=== PATIENT | male | born 1955 | race Caucasian/White ===

== ENCOUNTER 2018-09-20 20:31 | Inpatient (IN) | payer MEDICAID ==
[~2018-09-20] VITALS: Ht 172.7 cm; Wt 82.1 kg
[~2018-09-20 20:31] MED LIST: ACET-2119 PO; BISM-116 PO; LEVO500T2 PO; MAG355OR18 PO; METR500T4 PO; OMEP40CA37 PO
[2018-09-20 20:55] LABS: BASOPHILS % (AUTO) 0.3 % (0-1); EOSINOPHILS # (AUTO) 0.4 X10'3 (0-0.9); EOSINOPHILS % (AUTO) 2.5 % (0-6); HEMATOCRIT 45.6 % (42.0-52.0); HEMOGLOBIN 15.4 g/dl (14.0-17.9); LYMPHOCYTES # (AUTO) 1.6 X10'3 (1.1-4.8); LYMPHOCYTES % (AUTO) 10.5 % (21-51); MEAN CORPUSCULAR HGB CONC 33.9 % (33.0-36.5); MEAN CORPUSCULAR VOLUME 91.5 FL (78-98); MEAN PLATELET VOLUME 8.1 FL (7.4-10.4); MONOCYTES # (AUTO) 1.1 X10'3 (0-0.9); MONOCYTES % (AUTO) 7.4 % (2-12); NEUTROPHILS # (AUTO) 12.1 X10'3 (1.8-7.7); NEUTROPHILS % (AUTO) 79.3 % (42-75); PLATELET COUNT 226 X10'3 (140-440); RED BLOOD COUNT 4.99 X10'6 (4.70-6.10); RED CELL DISTRIBUTION WIDTH 14.7 % (11.5-14.5); WHITE BLOOD COUNT 15.3 X10'3 (4.5-11.0)
[2018-09-20 20:58] LABS: CLARITY,URINE CLEAR (Clear); COLOR,URINE YELLOW (Yellow); GLUCOSE, URINE NEGATIVE (Neg); KETONES,URINE NEGATIVE (Neg); LEUKOCYTE ESTERASE ,URINE NEGATIVE (Neg); NITRITES, URINE NEGATIVE (Neg); OCCULT BLOOD,URINE NEGATIVE (Neg); PH,URINE 6.5 (4.8-8.0); PROTEIN,URINE NEGATIVE (Neg); UROBILINOGEN,URINE 0.2 E.U/dL (0.2-1.0)
[2018-09-20 21:06] LABS: ALANINE AMINOTRANSFERASE 25 U/L (12-78); ALBUMIN 3.5 G/DL (3.4-5.0); ALKALINE PHOSPHATASE 94 IU/L (46-116); ANION GAP 10 (8-16); ASPARTATE AMINO TRANSFERASE 13 U/L (10-37); BILIRUBIN,TOTAL 0.4 MG/DL (0.1-1.0); BLOOD UREA NITROGEN 16 MG/DL (7-18); BUN/CREATININE RATIO 15.5 (5.4-32.0); CALCIUM 8.7 MG/DL (8.5-10.1); CHLORIDE 100 MMOL/L (99-107); CREATININE 1.03 MG/DL (0.60-1.10); GLUCOSE 116 MG/DL (70-104); LIPASE 99 U/L (73-393); POTASSIUM 3.9 MMOL/L (3.5-5.1); SODIUM 133 MMOL/L (135-145); TOTAL CARBON DIOXIDE 22.9 MMOL/L (24-32); eGFR 73 ML/MIN
[2018-09-20 21:16] LABS: UA COLLECTION TYPE NON-SPECIFIED
[2018-09-20] MEDS ORDERED: ketorolac tromethamine 15mg/ml inj. IV ONE (21:25)
[2018-09-20] MEDS ORDERED: ondansetron/PF 4mg/2ml inj IV ONE (21:25)
[2018-09-20] MEDS ORDERED: normal saline 1000ML IV soln IVB ONE (21:25)
[2018-09-20] MEDS ORDERED: iohexol 300mg/ml 100ml inj. ONE (21:28)
[2018-09-20] MEDS ORDERED: metroNIDAZOLE-Flagyl 500mg/NS 100 ML IV ONE (23:00)
[2018-09-20] MEDS ORDERED: levoFLOXACIN-Levaquin 500mg/D5 100 ML IV ONE (23:00)
[2018-09-20] MEDS ORDERED: morphine 4 MG/ML inj SYRINge IV ONE (23:10)
[2018-09-20] MEDS ORDERED: PANT20TA3 PO (23:15)
[2018-09-21] VITALS (16 sets, daily range): BP systolic 92–134; BP diastolic 57–78
[2018-09-21] MEDS ORDERED: mag hydrox/Alum hydrox/simeth 30ml oral suspension PO PRN (00:50)
[2018-09-21] MEDS ORDERED: acetaminophen 325mg tablet PO PRN ×2 (00:50)
[2018-09-21] MEDS ORDERED: magnesium hydroxide 30ml (MOM) UD suspension PO PRN (00:50)
[2018-09-21] MEDS ORDERED: normal saline 1000ml 1,000 ML IV ONE (00:50)
[2018-09-21] MEDS: normal saline 1000ml 1,000 ML IV SCH ×3 (01:08→20:50)
[2018-09-21 01:18] LABS: PROTHROMBIN TIME 10.4 SECONDS (9.0-12.0)
[2018-09-21] MEDS: ondansetron/PF 4mg/2ml inj IV PRN (01:30)
[2018-09-21] MEDS: morphine 2 MG/ML inj. syringe IV PRN ×3 (01:30→16:33)
[2018-09-21] MEDS: pantoprazole 40mg Tablet.DR PO SCH (08:05)
[2018-09-21] MEDS: levoFLOXACIN-Levaquin 500mg/D5 100 ML IV SCH (08:05)
[2018-09-21] MEDS: metroNIDAZOLE-Flagyl 500mg/NS 100 ML IV SCH ×2 (09:13→16:33)
[2018-09-21] MEDS: morphine 4 MG/ML inj SYRINge IV PRN ×2 (10:07→19:47)
[2018-09-21] MEDS ORDERED: fentaNYL/PF 50MCG/1 ML 2ML syringe IV PRN (11:00)
[2018-09-21] MEDS ORDERED: LIDOcaine 1%/PF 5ML 10 MG/ML VIAL SQ ONE (11:00)
[2018-09-21] MEDS ORDERED: LIDOcaine 1%/PF 5ML 10 MG/ML VIAL ONE (11:23)
[2018-09-21] MEDS ORDERED: fentaNYL/PF 50MCG/1 ML 2ML syringe ONE ×2 (11:24→11:43)
[2018-09-21] MEDS ORDERED: ondansetron/PF 4mg/2ml inj ONE (12:24)
[2018-09-21] MEDS ORDERED: ondansetron/PF 4mg/2ml inj IV ONE (12:30)
[2018-09-22] VITALS: BP 130/87
[2018-09-22] MEDS: metroNIDAZOLE-Flagyl 500mg/NS 100 ML IV SCH ×3 (00:15→16:24)
[2018-09-22] MEDS: morphine 2 MG/ML inj. syringe IV PRN ×4 (02:04→21:33)
[2018-09-22] MEDS: ondansetron/PF 4mg/2ml inj IV PRN (02:07)
[2018-09-22] MEDS: normal saline 1000ml 1,000 ML IV SCH ×2 (05:11→16:27)
[2018-09-22 05:19] LABS: BASOPHILS % (AUTO) 0.1 % (0-1); EOSINOPHILS # (AUTO) 0.3 X10'3 (0-0.9); EOSINOPHILS % (AUTO) 2.8 % (0-6); HEMATOCRIT 38.6 % (42.0-52.0); HEMOGLOBIN 13.2 g/dl (14.0-17.9); LYMPHOCYTES # (AUTO) 1.2 X10'3 (1.1-4.8); LYMPHOCYTES % (AUTO) 10.1 % (21-51); MEAN CORPUSCULAR HEMOGLOBIN 31.4 PG (27.0-31.0); MEAN CORPUSCULAR HGB CONC 34.1 % (33.0-36.5); MEAN PLATELET VOLUME 8.7 FL (7.4-10.4); MONOCYTES # (AUTO) 1.2 X10'3 (0-0.9); MONOCYTES % (AUTO) 9.6 % (2-12); NEUTROPHILS # (AUTO) 9.6 X10'3 (1.8-7.7); NEUTROPHILS % (AUTO) 77.4 % (42-75); PLATELET COUNT 166 X10'3 (140-440); RED BLOOD COUNT 4.19 X10'6 (4.70-6.10); RED CELL DISTRIBUTION WIDTH 14.7 % (11.5-14.5); WHITE BLOOD COUNT 12.4 X10'3 (4.5-11.0)
[2018-09-22 05:30] LABS: ALBUMIN 2.7 G/DL (3.4-5.0); ANION GAP 9 (8-16); BLOOD UREA NITROGEN 10 MG/DL (7-18); CALCIUM 8.3 MG/DL (8.5-10.1); CHLORIDE 106 MMOL/L (99-107); CREATININE 0.83 MG/DL (0.60-1.10); GLUCOSE 107 MG/DL (70-104); POTASSIUM 3.6 MMOL/L (3.5-5.1); SODIUM 140 MMOL/L (135-145); eGFR > 90 ML/MIN
[2018-09-22 07:08] VITALS: BP 122/69
[2018-09-22] MEDS: pantoprazole 40mg Tablet.DR PO SCH (07:17)
[2018-09-22] MEDS: levoFLOXACIN-Levaquin 500mg/D5 100 ML IV SCH (08:31)
[2018-09-22] MEDS: simethicone 80mg chew tab PO PRN ×2 (08:59→21:31)
[2018-09-22 11:17] VITALS: BP 116/68
[2018-09-22] MEDS ORDERED: iohexol 300mg/ml 100ml inj. ONE (17:39)
[2018-09-22 18:00] VITALS: BP 124/78
[2018-09-23] VITALS: BP 110/72
[2018-09-23] MEDS: metroNIDAZOLE-Flagyl 500mg/NS 100 ML IV SCH ×2 (00:25→09:59)
[2018-09-23] MEDS: normal saline 1000ml 1,000 ML IV SCH ×3 (04:15→16:08)
[2018-09-23 05:48] LABS: BASOPHILS % (AUTO) 0.3 % (0-1); EOSINOPHILS # (AUTO) 0.3 X10'3 (0-0.9); HEMATOCRIT 39.2 % (42.0-52.0); HEMOGLOBIN 13.1 g/dl (14.0-17.9); LYMPHOCYTES # (AUTO) 1.3 X10'3 (1.1-4.8); LYMPHOCYTES % (AUTO) 14.2 % (21-51); MEAN CORPUSCULAR HEMOGLOBIN 31.4 PG (27.0-31.0); MEAN CORPUSCULAR HGB CONC 33.5 % (33.0-36.5); MEAN CORPUSCULAR VOLUME 93.8 FL (78-98); MEAN PLATELET VOLUME 8.6 FL (7.4-10.4); MONOCYTES # (AUTO) 0.8 X10'3 (0-0.9); MONOCYTES % (AUTO) 9.1 % (2-12); NEUTROPHILS # (AUTO) 6.8 X10'3 (1.8-7.7); NEUTROPHILS % (AUTO) 73.4 % (42-75); PLATELET COUNT 180 X10'3 (140-440); RED BLOOD COUNT 4.17 X10'6 (4.70-6.10); RED CELL DISTRIBUTION WIDTH 14.6 % (11.5-14.5); WHITE BLOOD COUNT 9.2 X10'3 (4.5-11.0)
[2018-09-23 06:00] LABS: ALBUMIN 2.5 G/DL (3.4-5.0); ANION GAP 9 (8-16); BLOOD UREA NITROGEN 9 MG/DL (7-18); BUN/CREATININE RATIO 10.6 (5.4-32.0); CALCIUM 8.3 MG/DL (8.5-10.1); CHLORIDE 106 MMOL/L (99-107); CREATININE 0.85 MG/DL (0.60-1.10); GLUCOSE 96 MG/DL (70-104); SODIUM 140 MMOL/L (135-145); TOTAL CARBON DIOXIDE 25.5 MMOL/L (24-32); eGFR > 90 ML/MIN
[2018-09-23 06:01] LABS: POTASSIUM 3.7 MMOL/L (3.5-5.1)
[2018-09-23] MEDS: pantoprazole 40mg Tablet.DR PO SCH (09:20)
[2018-09-23] MEDS: levoFLOXACIN-Levaquin 500mg/D5 100 ML IV SCH (09:59)
[2018-09-23 12:30] VITALS: BP 135/79
[2018-09-23] MEDS: simethicone 80mg chew tab PO PRN ×2 (16:08→23:52)
[2018-09-23] MEDS: metroNIDAZOLE 500mg tablet PO SCH ×2 (16:08→23:51)
[2018-09-23] MEDS: ondansetron/PF 4mg/2ml inj IV PRN ×2 (16:08→23:52)
[2018-09-23 18:00] VITALS: BP 132/77
[2018-09-24] VITALS: BP 122/76
[2018-09-24] MEDS: normal saline 1000ml 1,000 ML IV SCH (02:30)
[2018-09-24 06:06] LABS: BASOPHILS % (AUTO) 0.3 % (0-1); EOSINOPHILS # (AUTO) 0.3 X10'3 (0-0.9); HEMATOCRIT 38.5 % (42.0-52.0); LYMPHOCYTES # (AUTO) 1.4 X10'3 (1.1-4.8); LYMPHOCYTES % (AUTO) 20.3 % (21-51); MEAN CORPUSCULAR HEMOGLOBIN 30.9 PG (27.0-31.0); MEAN CORPUSCULAR HGB CONC 33.8 % (33.0-36.5); MEAN CORPUSCULAR VOLUME 91.5 FL (78-98); MEAN PLATELET VOLUME 8.8 FL (7.4-10.4); MONOCYTES # (AUTO) 0.7 X10'3 (0-0.9); MONOCYTES % (AUTO) 10.1 % (2-12); NEUTROPHILS # (AUTO) 4.4 X10'3 (1.8-7.7); NEUTROPHILS % (AUTO) 65.3 % (42-75); PLATELET COUNT 196 X10'3 (140-440); RED BLOOD COUNT 4.21 X10'6 (4.70-6.10); RED CELL DISTRIBUTION WIDTH 14.3 % (11.5-14.5); WHITE BLOOD COUNT 6.7 X10'3 (4.5-11.0)
[2018-09-24 06:18] LABS: ALBUMIN 2.6 G/DL (3.4-5.0); ANION GAP 9 (8-16); BLOOD UREA NITROGEN 8 MG/DL (7-18); BUN/CREATININE RATIO 9.6 (5.4-32.0); CALCIUM 8.4 MG/DL (8.5-10.1); CHLORIDE 106 MMOL/L (99-107); CREATININE 0.83 MG/DL (0.60-1.10); GLUCOSE 103 MG/DL (70-104); POTASSIUM 3.6 MMOL/L (3.5-5.1); SODIUM 141 MMOL/L (135-145); TOTAL CARBON DIOXIDE 26.1 MMOL/L (24-32); eGFR > 90 ML/MIN
[2018-09-24 07:24] VITALS: BP 113/72
[2018-09-24] MEDS ORDERED: CefTRIAXone 2gm/D5W 50ml 50 ML IV SCH (08:00)
[2018-09-24] MEDS: pantoprazole 40mg Tablet.DR PO SCH (08:30)
[2018-09-24] MEDS: metroNIDAZOLE 500mg tablet PO SCH (08:30)
[2018-09-24 12:00] VITALS: BP 105/71
[2018-09-24] MEDS ORDERED: AMOX-580 PO (12:09)
[2018-09-24] MEDS ORDERED: MYL80T PO (12:09)
== END 2018-09-24 14:49 | disposition home or self-care (01) | DRG 720 ==
LOC: ER 20:31 → ED HOLD 09-21 00:50 → SUR 3N 09-21 01:59
PROVIDERS: ADMIT Internal Medicine; ATTEND Internal Medicine
PROC: BW211ZZ Computerized Tomography (CT Scan) of Abdomen and Pelvis using Low Osmolar Contrast (ICD-10-PCS; 2018-09-20)
PROC: 0W9J30Z Drainage of Pelvic Cavity with Drainage Device, Percutaneous Approach (ICD-10-PCS; principal; 2018-09-21)
PROC: BW211ZZ Computerized Tomography (CT Scan) of Abdomen and Pelvis using Low Osmolar Contrast (ICD-10-PCS; 2018-09-22)
DX: A41.9 Sepsis, unspecified organism (principal); K68.12 Psoas muscle abscess; K57.20 Diverticulitis of large intestine with perforation and abscess without bleeding; E87.1 Hypo-osmolality and hyponatremia; E86.0 Dehydration; K21.9 Gastro-esophageal reflux disease without esophagitis; B96.20 Unspecified Escherichia coli [E. coli] as the cause of diseases classified elsewhere; B95.2 Enterococcus as the cause of diseases classified elsewhere; G89.29 Other chronic pain; Z86.73 Personal history of transient ischemic attack (TIA), and cerebral infarction without residual deficits; Z90.49 Acquired absence of other specified parts of digestive tract; Z91.018 Allergy to other foods; Z91.010 Allergy to peanuts; Z88.8 Allergy status to other drugs, medicaments and biological substances; Z82.49 Family history of ischemic heart disease and other diseases of the circulatory system; Z82.3 Family history of stroke; Z82.5 Family history of asthma and other chronic lower respiratory diseases; Z81.8 Family history of other mental and behavioral disorders; Z79.899 Other long term (current) drug therapy; Z87.891 Personal history of nicotine dependence
CPT/HCPCS: 36415; 49406; 74177; 80048; 80053; 81003; 83690; 85025; 85610; 87070; 87075; 87077; 87186; 96361; 96365; 96368; 96375; 99285; C1729; G0378; J0696; J1885; J1956; J2001; J2270; J2405; J3010; J3490; J7030; Q9967

== ENCOUNTER 2021-12-19 07:25 | Emergency (ER) | payer MEDICARE, MEDICAID ==
[~2021-12-19] VITALS: Ht 172.7 cm; Wt 74.1 kg
[~2021-12-19 07:25] MED LIST changes: -LEVO500T2 PO; -METR500T4 PO; -OMEP40CA37 PO; +PANT20TA18 PO; +SIME80TA15 PO
[2021-12-19 07:35] VITALS: BP 136/79
[2021-12-19] MEDS ORDERED: HYDR-3972 PO (08:56)
--- NOTE | 2021-12-19 09:10 | NUR ---
instructed pt on use of incentive spirometer, return demonstration completed. verbalized understanding on how to use.
== END 2021-12-19 09:14 | disposition home or self-care (01) ==
LOC: ER 07:25
DX: S22.31XA Fracture of one rib, right side, initial encounter for closed fracture (principal); R07.81 Pleurodynia; R51.9 Headache, unspecified; R05.9 Cough, unspecified; K21.9 Gastro-esophageal reflux disease without esophagitis; F14.90 Cocaine use, unspecified, uncomplicated; G89.29 Other chronic pain; Z86.73 Personal history of transient ischemic attack (TIA), and cerebral infarction without residual deficits; Z90.49 Acquired absence of other specified parts of digestive tract; Z88.8 Allergy status to other drugs, medicaments and biological substances; Z79.899 Other long term (current) drug therapy; W00.0XXA Fall on same level due to ice and snow, initial encounter; Y93.89 Activity, other specified; Y92.89 Other specified places as the place of occurrence of the external cause; Y99.8 Other external cause status
CPT/HCPCS: 71045; 99283

== ENCOUNTER 2022-09-17 06:52 | Emergency (ER) | payer MEDICARE, MEDICAID ==
[~2022-09-17] VITALS: Ht 172.7 cm; Wt 73.6 kg
[~2022-09-17 06:52] MED LIST changes: -ACET-2119 PO; -BISM-116 PO; +LEVO50TA8 PO; -MAG355OR18 PO; +MECL-231 PO; -PANT20TA18 PO; -SIME80TA15 PO
[2022-09-17 07:00] VITALS: BP 124/80
[2022-09-17] MEDS ORDERED: ondansetron 4mg rapidly disintigrating tab PO ONE (13:25)
[2022-09-17] MEDS ORDERED: CEPH250T PO (13:32)
[2022-09-17] MEDS ORDERED: cephalexin 250mg capsule PO ONE (13:35)
[2022-09-17] MEDS ORDERED: bacitracin 15gm ointment TP ONE (13:50)
[2022-09-17] MEDS ORDERED: TETanus/Pertussis (Acell)/Diphther VAC/PF (Tdap-Adult) 0.5ml syringe IMVAC ONE (14:10)
--- NOTE | 2022-09-17 14:17 | NUR ---
pt dc from the lobby after lwobs. pt came back seen and tx in fast track by dr. noel. pt education done by md at bedside. pt educated on abx prescribed. pt instructed to come back to the er with any new or worsening symptoms. pt had no further questions and left the er in good health. pt dc from the er at 1419, 09-17-22.
== END 2022-09-17 14:19 | disposition home or self-care (01) ==
LOC: ER 06:53
DX: L60.0 Ingrowing nail (principal); K21.9 Gastro-esophageal reflux disease without esophagitis; G89.29 Other chronic pain; I51.9 Heart disease, unspecified; Z88.8 Allergy status to other drugs, medicaments and biological substances; Z88.5 Allergy status to narcotic agent; Z79.899 Other long term (current) drug therapy; Z91.040 Latex allergy status
CPT/HCPCS: 11750; 90471; 90715; 99284

== ENCOUNTER 2022-12-27 23:17 | Emergency (ER) | payer MEDICARE, MEDICAID ==
[~2022-12-27] VITALS: Ht 170.2 cm; Wt 77.2 kg
[2022-12-27 23:36] LABS: BASOPHILS % (AUTO) 0.9 % (0-1); EOSINOPHILS # (AUTO) 0.3 X10'3 (0-0.9); EOSINOPHILS % (AUTO) 5.3 % (0-6); HEMATOCRIT 39.9 % (42.0-52.0); HEMOGLOBIN 13.6 g/dl (14.0-17.9); LYMPHOCYTES # (AUTO) 1.7 X10'3 (1.1-4.8); MEAN CORPUSCULAR HEMOGLOBIN 31.8 PG (27.0-31.0); MEAN CORPUSCULAR HGB CONC 34.2 g/dL (33.0-36.5); MEAN CORPUSCULAR VOLUME 93.1 FL (78-98); MEAN PLATELET VOLUME 8.2 FL (7.4-10.4); MONOCYTES # (AUTO) 0.6 X10'3 (0-0.9); NEUTROPHILS % (AUTO) 52.8 % (42-75); PLATELET COUNT 192 X10'3 (140-440); RED BLOOD COUNT 4.29 X10'6 (4.70-6.10); RED CELL DISTRIBUTION WIDTH 14.6 % (11.5-14.5); WHITE BLOOD COUNT 5.6 X10'3 (4.5-11.0)
[2022-12-27 23:47] LABS: ALANINE AMINOTRANSFERASE 24 U/L (12-78); ALBUMIN 3.7 G/DL (3.4-5.0); ALBUMIN/GLOBULIN RATIO 1.2 (1.1-1.5); ALKALINE PHOSPHATASE 80 IU/L (46-116); ANION GAP 5 (8-16); ASPARTATE AMINO TRANSFERASE 17 U/L (10-37); BILIRUBIN,TOTAL 0.6 MG/DL (0.1-1.0); BLOOD UREA NITROGEN 7 MG/DL (7-18); BUN/CREATININE RATIO 8.4 (5.4-32.0); CALCIUM 9.2 MG/DL (8.5-10.1); CHLORIDE 106 MMOL/L (99-107); CREATININE 0.83 MG/DL (0.60-1.10); GLUCOSE 108 MG/DL (70-104); POTASSIUM 3.9 MMOL/L (3.5-5.1); SODIUM 139 MMOL/L (135-145); TOTAL CARBON DIOXIDE 27.8 MMOL/L (24-32); TOTAL PROTEIN 6.7 G/DL (6.4-8.2); eGFR > 90 ML/MIN
[2022-12-27 23:54] LABS: MAGNESIUM 1.9 MG/DL (1.5-2.4)
[2022-12-28] MEDS ORDERED: LIDOcaine Viscous 15ml cup MM ONE (02:10)
[2022-12-28] MEDS ORDERED: famotidine/PF 10 mg/ml inj IV ONE (02:10)
[2022-12-28] MEDS ORDERED: mag hydrox/Alum hydrox/simeth 30ml oral suspension PO ONE (02:10)
[2022-12-28] MEDS ORDERED: famotidine 20mg tablet PO ONE (02:15)
[2022-12-28 03:00] VITALS: BP 124/82
== END 2022-12-28 04:01 | disposition home or self-care (01) ==
LOC: ER 23:18
DX: K21.9 Gastro-esophageal reflux disease without esophagitis (principal); G89.29 Other chronic pain; F14.90 Cocaine use, unspecified, uncomplicated; Z88.5 Allergy status to narcotic agent; Z88.8 Allergy status to other drugs, medicaments and biological substances; Z91.018 Allergy to other foods; Z90.49 Acquired absence of other specified parts of digestive tract
CPT/HCPCS: 36415; 71045; 80053; 83735; 83880; 84484; 85025; 93005; 99285

== ENCOUNTER 2023-08-17 20:12 | Emergency (ER) | payer MEDICARE, MEDICAID ==
[~2023-08-17] VITALS: Ht 172.7 cm; Wt 70.5 kg
[2023-08-17 20:52] VITALS: TEMP 98.1
[2023-08-17 21:56] LABS: HEMOGLOBIN 13.8 g/dl (14.0-17.9); MEAN PLATELET VOLUME 7.8 FL (7.4-10.4)
[2023-08-17 21:58] LABS: BASOPHILS % (AUTO) 0.3 % (0-1); EOSINOPHILS # (AUTO) 0.1 X10'3 (0-0.9); EOSINOPHILS % (AUTO) 2.2 % (0-6); LYMPHOCYTES # (AUTO) 1.1 X10'3 (1.1-4.8); LYMPHOCYTES % (AUTO) 17.4 % (21-51); MEAN CORPUSCULAR HEMOGLOBIN 31.3 PG (27.0-31.0); MEAN CORPUSCULAR HGB CONC 33.6 g/dL (33.0-36.5); MEAN CORPUSCULAR VOLUME 93.2 FL (78-98); MONOCYTES # (AUTO) 0.8 X10'3 (0-0.9); MONOCYTES % (AUTO) 12.5 % (2-12); NEUTROPHILS # (AUTO) 4.1 X10'3 (1.8-7.7); NEUTROPHILS % (AUTO) 67.6 % (42-75); PLATELET COUNT 190 X10'3 (140-440); RED BLOOD COUNT 4.39 X10'6 (4.70-6.10); RED CELL DISTRIBUTION WIDTH 14.7 % (11.5-14.5); WHITE BLOOD COUNT 6.1 X10'3 (4.5-11.0)
[2023-08-17 22:05] LABS: ALANINE AMINOTRANSFERASE 44 U/L (12-78); ALBUMIN 3.2 G/DL (3.4-5.0); ALKALINE PHOSPHATASE 95 IU/L (46-116); ANION GAP 6 (8-16); ASPARTATE AMINO TRANSFERASE 23 U/L (10-37); BILIRUBIN,TOTAL 0.3 MG/DL (0.1-1.0); BLOOD UREA NITROGEN 7 MG/DL (7-18); BUN/CREATININE RATIO 8.9 (10.0-20.0); CALCIUM 8.4 MG/DL (8.5-10.1); CHLORIDE 101 MMOL/L (99-107); CREATININE 0.79 MG/DL (0.60-1.10); GLUCOSE 112 MG/DL (70-104); POTASSIUM 3.4 MMOL/L (3.5-5.1); SODIUM 132 MMOL/L (135-145); TOTAL CARBON DIOXIDE 25.2 MMOL/L (24-32); TOTAL PROTEIN 6.4 G/DL (6.4-8.2); eCRCL 88 ML/MIN; eGFR > 90 ML/MIN
[2023-08-17 22:11] LABS: LIPASE 20 U/L (16-77)
[2023-08-17] MEDS ORDERED: metroNIDAZOLE-Flagyl 500mg/NS 100 ML IV STA (22:44)
[2023-08-17] MEDS ORDERED: pantoprazole 40 MG vial IV ONE (22:45)
[2023-08-17] MEDS ORDERED: fentaNYL/PF 50MCG/1 ML 2ML syringe IV PRN (22:45)
[2023-08-17] MEDS ORDERED: metoclopramide 5 mg/ml inj IV ONE (22:45)
[2023-08-17] MEDS ORDERED: normal saline 1000ML IV soln IVB ONE (22:45)
[2023-08-17] MEDS ORDERED: pantoprazole 40MG/NS 100ML BAG 100 ML IV ONE (23:00)
[2023-08-17 23:08] LABS: APTT 28 SECONDS (22-32); INR 1.1 INR; PROTHROMBIN TIME 11.3 SECONDS (9.0-12.0)
[2023-08-17 23:11] LABS: PHOSPHORUS 3.2 MG/DL (2.3-4.5)
[2023-08-17 23:17] LABS: BILIRUBIN,URINE NEGATIVE (Neg); CLARITY,URINE CLEAR (Clear); COLOR,URINE STRAW (Yellow); GLUCOSE, URINE NEGATIVE (Neg); KETONES,URINE NEGATIVE (Neg); LEUKOCYTE ESTERASE ,URINE NEGATIVE (Neg); NITRITES, URINE NEGATIVE (Neg); OCCULT BLOOD,URINE NEGATIVE (Neg); PROTEIN,URINE NEGATIVE (Neg); UROBILINOGEN,URINE 0.2 E.U/dL (0.2-1.0)
[2023-08-17 23:23] LABS: UA COLLECTION TYPE NON-SPECIFIED
[2023-08-18] MEDS ORDERED: iohexol 300mg/ml 100ml inj. ONE (01:12)
[2023-08-18] MEDS ORDERED: potassium Cl 20 mEq SR tablet PO STA (03:08)
[2023-08-18] MEDS ORDERED: LOPE-190 PO (03:12)
[2023-08-18] MEDS ORDERED: METR-159 PO (03:12)
[2023-08-18] MEDS ORDERED: ACET-812 PO (03:12)
[2023-08-18 04:10] VITALS: BP 103/53; PULSE 59; RESP 14; O2SAT 97
== END 2023-08-18 04:00 | disposition home or self-care (01) ==
LOC: ER 20:13
DX: R19.7 Diarrhea, unspecified (principal); R10.13 Epigastric pain
CPT/HCPCS: 36415; 71045; 74177; 80053; 81003; 83605; 83690; 84100; 84484; 85025; 85610; 85651; 85730; 87040; 93005; 96365; 96366; 96368; 96375; 99285; C9113; J2765; J3490; J7030; Q9967

== ENCOUNTER 2023-12-26 08:44 | Emergency (ER) | payer MEDICARE, MEDICAID ==
[~2023-12-26] VITALS: Ht 172.7 cm; Wt 79.2 kg
[~2023-12-26 08:44] MED LIST changes: +ACET-812 PO; +LOPE-190 PO
[2023-12-26 09:13] LABS: BASOPHILS % (AUTO) 0.5 % (0-1); EOSINOPHILS # (AUTO) 0.1 X10'3 (0-0.9); EOSINOPHILS % (AUTO) 2.1 % (0-6); HEMATOCRIT 43.1 % (42.0-52.0); HEMOGLOBIN 14.5 g/dl (14.0-17.9); LYMPHOCYTES # (AUTO) 1.2 X10'3 (1.1-4.8); LYMPHOCYTES % (AUTO) 22.7 % (21-51); MEAN CORPUSCULAR HEMOGLOBIN 31.9 PG (27.0-31.0); MEAN CORPUSCULAR HGB CONC 33.8 g/dL (33.0-36.5); MEAN CORPUSCULAR VOLUME 94.4 FL (78-98); MEAN PLATELET VOLUME 8.2 FL (7.4-10.4); MONOCYTES # (AUTO) 0.5 X10'3 (0-0.9); MONOCYTES % (AUTO) 9.7 % (2-12); NEUTROPHILS # (AUTO) 3.5 X10'3 (1.8-7.7); PLATELET COUNT 203 X10'3 (140-440); RED BLOOD COUNT 4.56 X10'6 (4.70-6.10); RED CELL DISTRIBUTION WIDTH 14.5 % (11.5-14.5); WHITE BLOOD COUNT 5.5 X10'3 (4.5-11.0)
[2023-12-26] MEDS: aspirin 325mg tablet, delayed-release (Ecotrin) PO ONE (09:25)
[2023-12-26 09:28] LABS: ALANINE AMINOTRANSFERASE 26 U/L (12-78); ALBUMIN 3.6 G/DL (3.4-5.0); ALBUMIN/GLOBULIN RATIO 1.1 (1.1-1.5); ALKALINE PHOSPHATASE 93 IU/L (46-116); ANION GAP 8 (8-16); ASPARTATE AMINO TRANSFERASE 20 U/L (10-37); BILIRUBIN,TOTAL 0.4 MG/DL (0.1-1.0); BLOOD UREA NITROGEN 11 MG/DL (7-18); BUN/CREATININE RATIO 11.6 (10.0-20.0); CALCIUM 8.5 MG/DL (8.5-10.1); CHLORIDE 103 MMOL/L (99-107); CREATININE 0.95 MG/DL (0.60-1.10); GLUCOSE 132 MG/DL (70-104); POTASSIUM 4.1 MMOL/L (3.5-5.1); PRO BRAIN NATRIURETIC PEPTIDE 45 PG/ML (0-125); SODIUM 138 MMOL/L (135-145); TOTAL CARBON DIOXIDE 27.2 MMOL/L (24-32); TOTAL PROTEIN 6.8 G/DL (6.4-8.2); eCRCL 72 ML/MIN; eGFR 79 ML/MIN
[2023-12-26 11:31] VITALS: TEMP 97.3
[2023-12-26 12:25] VITALS: BP 129/80; PULSE 67; RESP 12; O2SAT 95
== END 2023-12-26 12:27 | disposition home or self-care (01) ==
LOC: ER 08:44
DX: R07.89 Other chest pain (principal); R11.2 Nausea with vomiting, unspecified; R06.02 Shortness of breath; E78.00 Pure hypercholesterolemia, unspecified; G89.29 Other chronic pain; I10 Essential (primary) hypertension; F14.90 Cocaine use, unspecified, uncomplicated; Z86.73 Personal history of transient ischemic attack (TIA), and cerebral infarction without residual deficits; Z90.49 Acquired absence of other specified parts of digestive tract; Z79.899 Other long term (current) drug therapy; Z91.018 Allergy to other foods; Z88.8 Allergy status to other drugs, medicaments and biological substances
CPT/HCPCS: 36415; 80053; 83880; 84484; 85025; 93005; 99285

== ENCOUNTER 2024-07-14 09:15 | Emergency (ER) | payer MEDICARE, MEDICAID ==
[~2024-07-14] VITALS: Ht 172.7 cm; Wt 63.4 kg
[2024-07-14] MEDS: ketorolac trometh 15mg/ml vial 15 MG/ML ML IM STA (11:22)
[2024-07-14] MEDS ORDERED: GABA-535 PO (11:31)
[2024-07-14 11:41] VITALS: BP 133/89; PULSE 76; RESP 18; TEMP 98.1; O2SAT 98
== END 2024-07-14 11:43 | disposition home or self-care (01) ==
LOC: ER 09:15
DX: M54.41 Lumbago with sciatica, right side (principal); K21.9 Gastro-esophageal reflux disease without esophagitis; Z88.8 Allergy status to other drugs, medicaments and biological substances; Z88.5 Allergy status to narcotic agent; Z91.018 Allergy to other foods; Z79.1 Long term (current) use of non-steroidal anti-inflammatories (NSAID); Z79.899 Other long term (current) drug therapy; Z90.49 Acquired absence of other specified parts of digestive tract
CPT/HCPCS: 96372; 99283; J1885

== ENCOUNTER 2025-10-04 04:55 | Emergency (ER) | payer MEDICARE, MEDICAID ==
[~2025-10-04] VITALS: Ht 172.7 cm; Wt 75.6 kg
[~2025-10-04 04:55] MED LIST changes: +GABA-535 PO
--- NOTE | 2025-10-04 05:05 | ELECTROCARDIOGRAPH REPORT ---
[facility] Test Date: 2025-10-04 Test Time: 05:04:06 Pat Name: AMERICA DOMINGUEZ Department: [facility]ER Patient ID: [id number] Room: Gender: M Program And Research Coordinator: : 1955 Requested By: SHEILA LEOS Order Number: [id number] Reading MD: Dr. CARTER Isabel Measurements Intervals [place] Rate: 75 P: 61 SD: 136 QRS: 45 QRSD: 91 T: -9 QT: 378 QTc: 423 Interpretive Statements Sinus rhythm Borderline T abnormalities, inferior leads Electronically Signed On 10-05-2025 18:10:[address] CARTER Isabel Please click the below link to view image of tracing.
--- NOTE | 2025-10-04 05:14 | Physician Documentation ---
History of Present Illness ~ Chief Complaint: Chest Pain Stated Complaint: CHEST PAIN,BACK PAIN,NAUSEA Time Seen by MD: 05:11 Primary Medical Doctor: ANAN COX HPI Patient presents to the emergency room with epigastric pain and back pain. Patient has had similar symptoms previously. Previously helped with Pepto- Bismol however did not tonight. History of reflux. No diarrhea. Patient also has chronic back pain and he has been suffering several days for right-sided back pain. He has had nothing for the pain denies dysuria Medication Reconciliation Allergies: Coded Allergies: amlodipine (Verified Allergy, Unknown, 10/04/25) hydromorphone (Verified Allergy, Unknown, 10/04/25) nitroglycerin (Verified Allergy, Unknown, 10/04/25) amlodipine besylate (Verified Adverse Reaction, Intermediate, 10/04/25) anxiety corn (Verified Adverse Reaction, Mild, 10/04/25) wheat (Verified Adverse Reaction, Mild, 10/04/25) Uncoded Allergies: CLAMS (Adverse Reaction, Mild, 07/05/13) PEANUTS (Adverse Reaction, Mild, 07/05/13) WALNUTS (Adverse Reaction, Mild, 07/05/13) Scheduled Acetaminophen (Tylenol Extra Strength), 2 TABLET PO Q6H Gabapentin (Gabapentin), 1 CAP PO Q8H Levothyroxine Sodium (Levothyroxine Sodium), 100 MCG PO MON,FRI,SAT,SUN, (Reported) Levothyroxine Sodium (Levothyroxine Sodium), 1 TAB PO TUE,THU,THUR, (Reported) Loperamide HCl (Imodium A-D), 2 MG PO Q6H Meclizine Hcl (Meclizine Hcl), 12.5 MG PO TID Past Medical History Past Medical History: CVA/TIA/Stroke, Bowel Obstruction, Diverticulitis, Gastritis, GERD, Chronic Pain Past Surgical History: cholecystectomy Patient History: (CAD) Coronary arteriosclerosis MOTHER, Age: 85 (CVA) Cerebrovascular accident MOTHER, Age: 85 Asthma Excessive iron SISTER, Age: 64 FH: HTN (hypertension) MOTHER, Age: 85 FH: diverticulitis MOTHER, Age: 85 BROTHER, Age: 63 FH: suicide FATHER, , Age: 73 Alcohol Use: None Drug Use: cocaine Lives In: Home Occupation: retired Review of Systems All Other Systems at this time: Reviewed and Negative ROS All review of systems negative except as per HPI Physical Exam Vital Signs: Temperature: 97.6, Source: Oral, Heart Rate: 80, Respiratory Rate: 18, BP: 114/84, Pulse Oximetry: 98, Weight: 75.600 Oxygen Flow Rate: 0 Physical Exam General: Patient is awake, alert, oriented x4 in no acute distress Head: Normocephalic and atraumatic. Eyes: Conjunctival normal. EOMI. PERRL. ENT: Mucous membranes moist. Neck: Supple, trachea is midline. Chest: Clear to auscultation bilaterally without rales, rhonchi, or wheezes. There is no accessory muscle use or retractions. Cardiac: RRR without murmurs, gallops, or rubs. Back: No CVA tenderness. No midline spinal tenderness. No step-offs. Mild tenderness to deep palpation to right paraspinal musculature on right. No rash Progress Results/Orders Results/Orders Medications Received in ER Medications (Trade) Dose Ordered Sig/Sandra Route PRN Reason Start Time Stop Time Status Last Admin Dose Admin (Pepcid IV inj) 20 mg ONCE ONCE IV 10/04/25 05:25 10/04/25 05:26 DC 10/04/25 05:33 20 MG (Maalox oral suspension) 30 ml ONCE ONCE PO 10/04/25 05:25 10/04/25 05:26 DC 10/04/25 05:32 30 ML (Xylocaine 2% Viscous 15mL cup) 15 ml ONCE ONCE MM 10/04/25 05:25 10/04/25 05:26 DC 10/04/25 05:32 15 ML Vital Signs 10/04/25 10/04/25 10/04/25 10/04/25 04:58 05:02 06:09 06:54 Temp 97.6 97.6 Pulse 80 63 Resp 18 12 15 16 B/P (MAP) 114/84 128/89 (102) Pulse Ox 98 95 O2 Flow Rate 0 0 Laboratory Tests Test 10/04/25 05:09 10/04/25 05:11 10/04/25 06:48 Urine Specimen Description Cln catch midstream Urine Color Straw Urine Clarity Clear Urine pH 6.0 Urine Specific [place] <=1.005 Urine Protein Negative Urine Glucose (UA) Negative Urine Ketones Negative Urine Occult Blood Negative Urine Nitrite Negative Urine Bilirubin Negative Urine Urobilinogen 0.2 Urine Leukocyte Esterase Negative Urine Culture Indicated Not ind Volume Urine Centrifuged 10 ml Urine Comment White Blood Count 5.3 Red Blood Count 4.56 L Hemoglobin 14.7 Hematocrit 42.2 Mean Corpuscular Volume 92.5 Mean Corpuscular Hemoglobin 32.1 H Mean Corpuscular Hemoglobin Concent 34.7 Red Cell Distribution Width 14.6 H Platelet Count 193 Mean Platelet Volume 8.6 Neutrophils (%) (Auto) 60.9 Lymphocytes (%) (Auto) 25.2 Monocytes (%) (Auto) 11.2 Eosinophils (%) (Auto) 2.1 Basophils (%) (Auto) 0.6 Neutrophils # (Auto) 3.2 Lymphocytes # (Auto) 1.3 Monocytes # (Auto) 0.6 Eosinophils # (Auto) 0.1 Basophils # (Auto) 0.0 CBC Comment Sodium Level 140 Potassium Level 3.9 Chloride Level 108 H Carbon Dioxide Level 24.8 Anion Gap 7 L Blood Urea Nitrogen 10 Creatinine 0.81 Estimated GFR/1.73 m2 > 90 BUN/Creatinine Ratio 12.3 Glucose Level 105 H Calcium Level 9.0 Troponin I High Sensitivity 5 4 Pro-B-Type Natriuretic Peptide 81 Albumin 3.7 Lipase 24 Chemistry Comments Troponin I High Sens Percent Delta 20 Troponin I Hi Sens Absolute Change -1 EKG/XRAY/CT/US/VASC/MRI EKG : Additional Comment EKG interpreted by myself shows time of 0504, rate 75, sinus rhythm, normal axis, no ST changes Chest X-Ray : Interpreted By: self Views: 1 VIEW Indication: chest pain Lungs: normal Mediastinum: normal Ribs/Bones: normal Abdomen: normal Impression: no acute disease Medical Decision Making Additional information obtaine: old records Findings Patient presents to the emergency room with epigastric pain as per HPI. Differentials include but are not limited to gastritis cholecystitis ACS diverticulitis pancreatitis therefore emergent labs and imaging indicated. Workup did not demonstrate life-threatening pathology and risk of PE/aortic dissection seemed low given unremarkable vitals on reevaluation. Counseled, reassured, advised return for new or worsening symptoms. Heart Score: 1 Differential Dx:Considerations: Include: angina, aortic dissection, chest wall pain, cholelithiasis, CHF, costochondritis, esophageal reflux/spasm, gastritis, herpes zoster, myocardial infarction, pericarditis, pleuritis, pancreatitis, pneumonia, pneumothorax, pulmonary embolus, other Departure Disposition: 01 HOME / SELF CARE / HOMELESS Impression: Primary Impression: Chest pain Condition: Stable Discharge Instructions: Nonspecific Chest Pain, Adult Referrals: NO PRIMARY CARE PROVIDER (PCP) Education Educated: Patient Educated regarding: diagnosis, treatment, prognosis, need for follow up Signature Scribe Signature: No scribe Attestation: The note accurately reflects work and decisions made by me.Shawn Aguilar MD 10/04/25 05:25 SHAWN AGUILAR MD Oct 04, 2025 05:14 CARRILLO CAMPBELL MD Oct 04, 2025 07:42
[2025-10-04 05:25] LABS: MEAN PLATELET VOLUME 8.6 FL (7.4-10.4); RED CELL DISTRIBUTION WIDTH 14.6 % (11.5-14.5)
[2025-10-04] MEDS: LIDOcaine 2% Viscous 15ml cup MM ONE (05:32)
[2025-10-04] MEDS: mag hydrox/Alum hydrox/simeth 30ml oral suspension PO ONE (05:32)
[2025-10-04] MEDS: famotidine/PF 10 mg/ml inj IV ONE (05:33)
--- NOTE | 2025-10-04 05:41 | RADIOLOGY REPORT ---
CHEST RADIOGRAPH INDICATION: CP TECHNIQUE: Single frontal view of the chest was obtained COMPARISON: DI CHEST,SINGLE VIEW on DOS: 08/17/23, CHEST,SINGLE VIEW on DOS: 12/27/22, CHEST,SINGLE VIEW on DOS: 12/19/21 FINDINGS: Lines and Tubes: None Lungs: Clear Pleura: No effusion. No pneumothorax. Cardiomediastinal contours: Unremarkable Bones: Unremarkable IMPRESSION: 1. No acute disease.
[2025-10-04 05:49] LABS: CREATININE 0.81 MG/DL (0.60-1.10); PRO BRAIN NATRIURETIC PEPTIDE 81 PG/ML (0-125); TOTAL CARBON DIOXIDE 24.8 MMOL/L (24-32); eCRCL 83 ML/MIN; eGFR > 90 ML/MIN
[2025-10-04 05:53] LABS: LEUKOCYTE ESTERASE ,URINE NEGATIVE (Neg); NITRITES, URINE NEGATIVE (Neg); OCCULT BLOOD,URINE NEGATIVE (Neg)
[2025-10-04 06:12] LABS: UA COLLECTION TYPE CLN CATCH MIDSTREAM
[2025-10-04] MEDS: ketorolac trometh 15mg/ml vial 15 MG/ML ML IV ONE (06:54)
[2025-10-04 07:59] VITALS: BP 131/81; PULSE 72; RESP 14; TEMP 97.6; O2SAT 97
== END 2025-10-04 08:02 | disposition home or self-care (01) ==
LOC: ER 04:55
DX: R07.9 Chest pain, unspecified (principal); G89.29 Other chronic pain; F14.90 Cocaine use, unspecified, uncomplicated; I25.10 Atherosclerotic heart disease of native coronary artery without angina pectoris; Z86.73 Personal history of transient ischemic attack (TIA), and cerebral infarction without residual deficits; Z87.19 Personal history of other diseases of the digestive system; Z88.5 Allergy status to narcotic agent; Z88.8 Allergy status to other drugs, medicaments and biological substances; Z90.49 Acquired absence of other specified parts of digestive tract; Z91.018 Allergy to other foods; Z79.899 Other long term (current) drug therapy
CPT/HCPCS: 36415; 71045; 80048; 81003; 83690; 83880; 84484; 85025; 93005; 96374; 99285; J3490